=== PATIENT | male | born 1955 | race Caucasian/White ===

== ENCOUNTER → 2016-09-07 | Outpatient (CLI) | payer OTHER | LOC: HEART 5 08:30 | DX: R00.2 Palpitations (principal); R07.9 Chest pain, unspecified; R06.00 Dyspnea, unspecified; R53.83 Other fatigue; R42 Dizziness and giddiness | CPT/HCPCS: 78452; 93306; A9502; J2785 ==

== ENCOUNTER 2020-06-09 10:18 | Observation (INO) | payer MEDICARE ==
[~2020-06-09] VITALS: Ht 182.9 cm; Wt 129.3 kg
[2020-06-09 11:08] LABS: HEMOGLOBIN 14.3 gm/dl (14.0-17.5); RED BLOOD COUNT 4.87 M/UL (4.20-5.50)
[2020-06-09 11:33] LABS: BUN/CREATININE RATIO 15 (0-10)
[2020-06-09] MEDS ORDERED: GABAPENTIN400 MG PO (13:58)
[2020-06-09] MEDS ORDERED: ROXICODONE5 MG PO (13:59)
[2020-06-09] MEDS ORDERED: VITAMIN B-122500 MCG SL (13:59)
[2020-06-09] MEDS ORDERED: FOLIC ACID 1 MG1 MG PO (14:00)
[2020-06-09] MEDS ORDERED: REVATIO 20 MG T20 MG PO (14:01)
[2020-06-09] MEDS ORDERED: LEVOTHYROXINE50 MC1 PO (14:01)
[2020-06-09] MEDS ORDERED: VITAMIN D325 MCG PO (14:01)
[2020-06-09] MEDS ORDERED: ECOTRIN81 MG PO (14:08)
[2020-06-10 04:28] LABS: BUN/CREATININE RATIO 13 (0-10)
== END 2020-06-10 15:24 | disposition home or self-care (01) ==
LOC: ER1 10:18 → MED SURG 4 13:08 → CDU 13:08 → MED SURG 4 13:08
PROVIDERS: Physician Assistant; ADMIT Internal Medicine
DX: K85.90 Acute pancreatitis without necrosis or infection, unspecified (principal); F17.220 Nicotine dependence, chewing tobacco, uncomplicated; Z20.822 Contact with and (suspected) exposure to COVID-19; Z79.899 Other long term (current) drug therapy
CPT/HCPCS: 36415; 80053; 81001; 82150; 82550; 82553; 83690; 84484; 85025; 93005; 99285; G0378; J7030; Q9967; U0002

== ENCOUNTER → 2020-08-20 | Outpatient (CLI) | payer MEDICARE ==
[~2020-08-20] MED LIST: ECOTRIN81 MG PO; FOLIC ACID 1 MG1 MG PO; GABAPENTIN400 MG PO; LEVOTHYROXINE50 MC1 PO; REVATIO 20 MG T20 MG PO; ROXICODONE5 MG PO; VITAMIN B-122500 MCG SL; VITAMIN D325 MCG PO
== END ==
LOC: HEART 5 08:38
DX: R06.02 Shortness of breath (principal)
CPT/HCPCS: 94010

== ENCOUNTER → 2021-02-21 | Outpatient (CLI) | payer MEDICARE | LOC: KOH-I 02-16 14:00 | DX: E04.1 Nontoxic single thyroid nodule (principal) | CPT/HCPCS: 76536 ==